=== PATIENT | female | born 1945 | race Caucasian/White ===

== ENCOUNTER 2021-09-25 14:31 | Outpatient (CLI) | payer MEDICARE, OTHER ==
[2021-09-25 15:41] LABS: Hemoglobin 10.9 g/dL (12.0-15.5); Mean Corpuscular Hemoglobin 23.7 pg (27.0-33.0); Mean Corpuscular Volume 76.7 fl (81.6-98.3); Mean Platelet Volume 9.4 fl (7.4-10.4); Platelet Count 471 10x3/uL (150-450); RBC Distribution Width 17.9 % (11.5-14.5); Red Blood Cell (RBC) Count 4.59 10x6/uL (3.90-5.03); White Blood Cell (WBC) Count 9.4 10x3/uL (3.5-10.5)
[2021-09-25 15:53] LABS: Anion Gap 19 mmol/L (10-20); BUN (Urea Nitrogen) 25 mg/dL (9.8-20.1); Calc. Creatinine Clearance 0 mL/min (70-130); Calcium 9.6 mg/dL (7.8-10.44); Carbon Dioxide 22 mmol/L (23-31); Chloride 102 mmol/L (98-107); Glucose 98 mg/dL (83-110); Potassium 4.8 mmol/L (3.5-5.1); Sodium 138 mmol/L (136-145)
[2021-09-25 15:56] LABS: INR-International Normal Ratio 0.9; PTT 24.3 sec (22.0-33.0); Prothrombin Time 10.2 sec (9.5-12.1)
[2021-09-25 23:34] LABS: SARS-CoV-2 PCR by NAA Not Detected (NotDetected)
== END 2021-09-25 14:32 | disposition home or self-care (01) ==
LOC: LABBT 14:31
PROVIDERS: ATTEND Neurological Surgery
DX: Z01.818 Encounter for other preprocedural examination (principal); M48.061 Spinal stenosis, lumbar region without neurogenic claudication; M48.07 Spinal stenosis, lumbosacral region; Z20.822 Contact with and (suspected) exposure to COVID-19
CPT/HCPCS: 80048; 85027; 85610; 85730; 93005; U0003; U0005; 93010

== ENCOUNTER 2021-09-28 10:36 | Day surgery (SDC) | payer MEDICARE, OTHER ==
[2021-09-26 15:05] VITALS: BMI 26.9
[2021-09-28] MEDS ORDERED: EPINEPHrine 1 MG/ML AMP ONE (11:45)
[2021-09-28] MEDS ORDERED: Bupivacaine PF 0.5% 30 ML VIAL ONE (11:45)
[2021-09-28] MEDS ORDERED: Thrombin 5000 UNITS/5 ML VIAL ONE (11:46)
[2021-09-28] MEDS ORDERED: Neomycin-Polymyxin 1 ML AMP ONE (11:46)
[2021-09-28] MEDS ORDERED: ceFAZolin (BATCH) 2 GM/100 ML BAG ONE (12:25)
[2021-09-28] MEDS ORDERED: Midazolam HCl 2 mg/2 ml Vial ONE (12:33)
[2021-09-28] MEDS ORDERED: ePHEDrine 50 MG/ML VIAL ONE (12:35)
[2021-09-28] MEDS ORDERED: Rocuronium Bromide 10 MG/ML (10ML VIAL) ONE (12:35)
[2021-09-28] MEDS ORDERED: Ondansetron PF 4 MG/2 ML Vial ONE (12:35)
[2021-09-28] MEDS ORDERED: Lidocaine 1% PF 5 ML VIAL ONE (12:35)
[2021-09-28] MEDS ORDERED: Glycopyrrolate 0.2 MG/ML 5 ML SYRINGE ONE (12:35)
[2021-09-28] MEDS ORDERED: PROPOFOL 200 MG/20 ML VIAL ONE (12:35)
[2021-09-28] MEDS ORDERED: Dexamethasone 20 MG/5 ML VIAL ONE (12:35)
[2021-09-28] MEDS ORDERED: fentaNYL Citrate/PF 100 MCG/2 ML SYRINGE ONE ×2 (12:39→15:04)
[2021-09-28] MEDS ORDERED: Promethazine HCl 25 MG/ML VIAL IM PRN ×2 (15:50→15:51)
[2021-09-28] MEDS ORDERED: Ondansetron HCl/PF 4 MG/2 ML Vial IVP PRN ×2 (15:50→15:51)
[2021-09-28] MEDS ORDERED: Promethazine HCl 25 MG/ML VIAL IVPB PRN ×2 (15:50→15:51)
[2021-09-28] MEDS ORDERED: Fentanyl 100 MCG/2 ML VIAL ONE (16:08)
[2021-09-28] MEDS ORDERED: Promethazine HCl 25 MG/ML VIAL ONE (17:32)
[2021-09-28] MEDS ORDERED: traMADol HCl 50 MG TAB ONE (18:24)
== END 2021-09-28 18:52 | disposition home or self-care (01) ==
LOC: SDC 10:36
PROVIDERS: ATTEND Neurological Surgery
PROC: 0QB00ZZ Excision of Lumbar Vertebra, Open Approach (ICD-10-PCS; principal; 2021-09-28)
PROC: 01NB0ZZ Release Lumbar Nerve, Open Approach (ICD-10-PCS; 2021-09-28)
DX: M48.062 Spinal stenosis, lumbar region with neurogenic claudication (principal); M71.38 Other bursal cyst, other site; G20 Parkinson's disease; M54.16 Radiculopathy, lumbar region; M48.02 Spinal stenosis, cervical region; I10 Essential (primary) hypertension; E78.5 Hyperlipidemia, unspecified; I69.331 Monoplegia of upper limb following cerebral infarction affecting right dominant side; E03.9 Hypothyroidism, unspecified; G89.4 Chronic pain syndrome; E78.00 Pure hypercholesterolemia, unspecified; Z87.891 Personal history of nicotine dependence; Z92.3 Personal history of irradiation; Z79.82 Long term (current) use of aspirin; Z79.890 Hormone replacement therapy; Z79.899 Other long term (current) drug therapy; Z88.1 Allergy status to other antibiotic agents; Z88.2 Allergy status to sulfonamides; Z88.5 Allergy status to narcotic agent; Z88.8 Allergy status to other drugs, medicaments and biological substances; Z90.5 Acquired absence of kidney
CPT/HCPCS: 76000; J0171; J0690; J1100; J2250; J2405; J2550; J2704; J3010; J3370; J3490; S0020

== ENCOUNTER 2022-09-17 13:13 | Outpatient (CLI) | payer MEDICARE, OTHER ==
[2022-09-17 14:40] LABS: PTT 26.4 sec (22.0-33.0); Prothrombin Time 10.8 sec (9.5-12.1)
== END 2022-09-17 13:14 | disposition home or self-care (01) ==
LOC: LABBT 13:13
PROVIDERS: ATTEND Neurological Surgery
DX: Z01.812 Encounter for preprocedural laboratory examination (principal); M48.062 Spinal stenosis, lumbar region with neurogenic claudication
CPT/HCPCS: 85610; 85730

== ENCOUNTER 2022-09-19 05:46 | Inpatient (IN) | payer MEDICARE, OTHER ==
[2022-09-18 13:48] VITALS: BMI 23.8
[2022-09-19] MEDS ORDERED: Neomycin-Polymyxin 1 ML AMP ONE (06:10)
[2022-09-19] MEDS ORDERED: Vancomycin 1 GM VIAL ONE (06:10)
[2022-09-19] MEDS ORDERED: Bupivacaine HCl 0.5%/Epinephrine 1:200,000/PF 30 ml Vial ONE (06:10)
[2022-09-19] MEDS ORDERED: Thrombin 5000 UNITS/5 ML VIAL ONE (06:10)
[2022-09-19] MEDS ORDERED: fentaNYL PF 100 MCG/2 ML SYRINGE ONE (06:26)
[2022-09-19] MEDS ORDERED: Sodium Chloride 0.9% 100 ML ONE (06:49)
[2022-09-19] MEDS ORDERED: NEOSTIGMINE 3 MG/3 ML SYR 3 MG/3 ML SYRINGE ONE (06:49)
[2022-09-19] MEDS ORDERED: Ondansetron PF 4 MG/2 ML Vial ONE (06:49)
[2022-09-19] MEDS ORDERED: CEFAZOLIN 2 GM VIAL ONE (06:49)
[2022-09-19] MEDS ORDERED: Lidocaine 1% PF 5 ML VIAL ONE (06:49)
[2022-09-19] MEDS ORDERED: Vecuronium 10 MG VIAL ONE (06:49)
[2022-09-19] MEDS ORDERED: ePHEDrine Sulfate 50 MG/10 ML VIAL ONE (06:49)
[2022-09-19] MEDS ORDERED: Dexamethasone 20 MG/5 ML VIAL ONE (06:49)
[2022-09-19] MEDS ORDERED: PROPOFOL 200 MG/20 ML VIAL ONE (06:49)
[2022-09-19] MEDS ORDERED: Rocuronium Bromide 10 MG/ML (10ML VIAL) ONE (06:49)
[2022-09-19] MEDS ORDERED: Scopolamine 1.5 mg/72 hour Patch ONE (06:49)
[2022-09-19] MEDS ORDERED: GLYCOPYRROLATE/PF 0.2 MG/ML VIAL ONE (06:49)
[2022-09-19] MEDS ORDERED: Phenylephrine 10 MG/ML VIAL ONE (06:49)
[2022-09-19] MEDS ORDERED: Mag-Al 1200 mg/1200 mg/30 ML UDCUP PO PRN (06:51)
[2022-09-19] MEDS ORDERED: HYDROcodone/Acetaminophen 10/325 mg Tablet PO PRN (06:51)
[2022-09-19] MEDS ORDERED: diphenhydrAMINE 50 MG/ML VIAL IVP PRN (06:51)
[2022-09-19] MEDS ORDERED: Milk Of Magnesia 30 ML UDCUP PO PRN (06:51)
[2022-09-19] MEDS ORDERED: Ondansetron PF 4 MG/2 ML Vial IVP PRN (06:51)
[2022-09-19] MEDS ORDERED: Prochlorperazine 10 MG/2 ML VIAL IM PRN (06:51)
[2022-09-19] MEDS ORDERED: Promethazine HCl 12.5 MG SUPP PR PRN (06:51)
[2022-09-19] MEDS ORDERED: HYDROcodone/Acetaminophen 7.5/325 mg Tablet PO PRN (06:51)
[2022-09-19] MEDS ORDERED: tiZANidine HCl 4 MG TAB PO PRN (06:54)
[2022-09-19] MEDS ORDERED: Midazolam HCl 2 mg/2 ml Vial ONE (06:55)
[2022-09-19 07:06] LABS: #Basophils 0.1 thou/uL (0.0-0.2); #Eosinphils 0.2 thou/uL (0.0-0.7); #Neutrophils 5.9 thou/uL (1.40-6.50); %Basophils 0.7 % (0.0-1.0); %Eosinophils 1.9 % (0.0-10.0); %Lymphocytes 22.2 % (21.0-51.0); %Monocytes 10.6 % (0.0-10.0); %Neutrophils 64.6 % (42.0-75.0); Hemoglobin 14.7 g/dL (12.0-16.0); Mean Corpuscular HGB CONC 33.7 g/dL (32.0-36.0); Mean Corpuscular Hemoglobin 32.1 pg (27.0-31.0); Mean Corpuscular Volume 95.3 fl (78.0-98.0); Mean Platelet Volume 7.3 fL (7.4-10.4); Platelet Count 254 10x3/uL (130-400); RBC Distribution Width 13.3 % (11.5-14.5); Red Blood Cell (RBC) Count 4.58 mill/uL (4.20-5.40); White Blood Cell (WBC) Count 9.2 10x3/uL (4.8-10.8)
[2022-09-19] MEDS ORDERED: HYDROmorphone 2 MG/ML VIAL ONE (13:37)
[2022-09-19] MEDS ORDERED: fentaNYL 50 mcg/mL 1 mL Vial ONE ×2 (14:45→14:54)
[2022-09-19] MEDS: Sodium Chloride 0.9% 1,000 ML IV SCH ×2 (17:31→19:39)
[2022-09-19] MEDS: Famotidine 20 MG TAB PO SCH (17:31)
[2022-09-19] MEDS: Docusate Sodium 100 MG/10 ML UDCUP PO SCH ×2 (17:31→20:11)
[2022-09-19] MEDS: Cholecalciferol 1,000 UNITS (25 MCG) TAB PO SCH (17:31)
[2022-09-19] MEDS: CEFAZOLIN 2 GM in Sodium Chloride 0.9% 100 ML IVPB SCH ×2 (17:46→22:35)
[2022-09-19] MEDS: traMADol HCl 50 MG TAB PO PRN ×2 (17:56→23:45)
[2022-09-19] MEDS: Tetrahydrozoline 0.05% OPTH 15 ML BOT EA EYE PRN (18:37)
[2022-09-19] MEDS: Cyclobenzaprine 10 MG TAB PO PRN (20:11)
[2022-09-20] MEDS: traMADol HCl 50 MG TAB PO PRN ×3 (05:12→17:27)
[2022-09-20] MEDS: Levothyroxine Sodium 125 MCG TAB PO SCH (05:12)
[2022-09-20] MEDS ORDERED: cloNIDine 0.1 MG TAB PO SCH ×2 (09:00→17:15)
[2022-09-20] MEDS ORDERED: Non-Formulary Item 1 EACH (Amantadine Hcl [Amantadine] 100 MG Tablet) PO SCH (09:00)
[2022-09-20] MEDS: Docusate Sodium 100 MG/10 ML UDCUP PO SCH ×2 (10:34→21:04)
[2022-09-20] MEDS: Cholecalciferol 1,000 UNITS (25 MCG) TAB PO SCH (10:34)
[2022-09-20] MEDS: Amantadine HCl 100 mg Capsule FS SCH ×2 (10:34→20:55)
[2022-09-20] MEDS: Famotidine 20 MG TAB PO SCH (10:34)
[2022-09-20] MEDS: Amlodipine 5 MG TAB PO SCH ×2 (10:34→20:55)
[2022-09-20] MEDS: Tetrahydrozoline 0.05% OPTH 15 ML BOT EA EYE PRN (10:35)
[2022-09-20] MEDS: Cyclobenzaprine 10 MG TAB PO PRN (11:14)
[2022-09-20] MEDS: Sodium Chloride 0.9% 1,000 ML IV SCH ×2 (14:46→23:22)
[2022-09-20] MEDS: Acetaminophen 325 MG TAB PO PRN (21:01)
[2022-09-20] MEDS: cloNIDine 0.1 MG TAB PO SCH (23:35)
[2022-09-21] MEDS: Levothyroxine Sodium 125 MCG TAB PO SCH (05:22)
[2022-09-21] MEDS: traMADol HCl 50 MG TAB PO PRN ×2 (09:12→15:32)
[2022-09-21] MEDS: Amantadine HCl 100 mg Capsule FS SCH ×2 (09:12→20:48)
[2022-09-21] MEDS: Docusate Sodium 100 MG/10 ML UDCUP PO SCH ×2 (09:12→20:48)
[2022-09-21] MEDS: Famotidine 20 MG TAB PO SCH (09:13)
[2022-09-21] MEDS: Cholecalciferol 1,000 UNITS (25 MCG) TAB PO SCH (09:13)
[2022-09-21] MEDS: Amlodipine 5 MG TAB PO SCH ×2 (09:13→20:47)
[2022-09-21] MEDS: cloNIDine 0.1 MG TAB PO SCH ×2 (17:31→23:50)
[2022-09-21] MEDS: Cyclobenzaprine 10 MG TAB PO PRN ×2 (17:31→23:50)
[2022-09-21] MEDS ORDERED: Non-Formulary Item 1 EACH (Pantoprazole Sodium [Pantoprazole Sodium] 20 MG Tablet.Dr) PO SCH (21:00)
[2022-09-22] MEDS: Levothyroxine Sodium 125 MCG TAB PO SCH (05:39)
[2022-09-22 07:31] LABS: #Basophils 0.1 thou/uL (0.0-0.2); #Eosinphils 0.3 thou/uL (0.0-0.7); #Lymphocytes 1.9 thou/uL (1.20-3.40); #Neutrophils 5.2 thou/uL (1.40-6.50); %Basophils 0.6 % (0.0-1.0); %Lymphocytes 22.9 % (21.0-51.0); %Monocytes 11.8 % (0.0-10.0); %Neutrophils 61.7 % (42.0-75.0); Hemoglobin 9.5 g/dL (12.0-16.0); Mean Corpuscular HGB CONC 34.6 g/dL (32.0-36.0); Mean Corpuscular Hemoglobin 32.6 pg (27.0-31.0); Mean Corpuscular Volume 94.3 fl (78.0-98.0); Mean Platelet Volume 7.9 fL (7.4-10.4); Platelet Count 171 10x3/uL (130-400); RBC Distribution Width 13.2 % (11.5-14.5); White Blood Cell (WBC) Count 8.5 10x3/uL (4.8-10.8)
[2022-09-22 07:56] LABS: Anion Gap 12 mmol/L (10-20); BUN (Urea Nitrogen) 12 mg/dL (9.8-20.1); Calc. Creatinine Clearance 62 mL/min (70-130); Calcium 8.1 mg/dL (7.8-10.44); Carbon Dioxide 24 mmol/L (23-31); Chloride 96 mmol/L (98-107); Estimated GFR 76; Glucose 86 mg/dL (83-110); Potassium 3.4 mmol/L (3.5-5.1); Sodium 129 mmol/L (136-145)
[2022-09-22] MEDS: Amantadine HCl 100 mg Capsule FS SCH ×2 (09:12→21:18)
[2022-09-22] MEDS: Docusate Sodium 100 MG/10 ML UDCUP PO SCH ×2 (09:12→21:19)
[2022-09-22] MEDS: Famotidine 20 MG TAB PO SCH (09:12)
[2022-09-22] MEDS: Amlodipine 5 MG TAB PO SCH ×2 (09:13→21:17)
[2022-09-22] MEDS: Cholecalciferol 1,000 UNITS (25 MCG) TAB PO SCH (09:13)
[2022-09-22] MEDS: Cyclobenzaprine 10 MG TAB PO PRN ×2 (09:17→17:53)
[2022-09-22] MEDS: traMADol HCl 50 MG TAB PO PRN ×2 (13:11→21:16)
[2022-09-22] MEDS: cloNIDine 0.1 MG TAB PO SCH ×2 (16:37→23:58)
[2022-09-23] MEDS: Levothyroxine Sodium 125 MCG TAB PO SCH (05:29)
[2022-09-23 06:56] LABS: #Eosinphils 0.3 thou/uL (0.0-0.7); #Lymphocytes 1.6 thou/uL (1.20-3.40); #Monocytes 0.9 thou/uL (0.11-0.59); #Neutrophils 4.6 thou/uL (1.40-6.50); %Basophils 0.5 % (0.0-1.0); %Eosinophils 4.6 % (0.0-10.0); %Lymphocytes 21.6 % (21.0-51.0); %Neutrophils 61.3 % (42.0-75.0); Hemoglobin 9.7 g/dL (12.0-16.0); Mean Corpuscular HGB CONC 33.3 g/dL (32.0-36.0); Mean Corpuscular Hemoglobin 30.9 pg (27.0-31.0); Mean Platelet Volume 7.4 fL (7.4-10.4); Platelet Count 225 10x3/uL (130-400); RBC Distribution Width 13.1 % (11.5-14.5); Red Blood Cell (RBC) Count 3.13 mill/uL (4.20-5.40); White Blood Cell (WBC) Count 7.5 10x3/uL (4.8-10.8)
[2022-09-23 07:13] LABS: Anion Gap 11 mmol/L (10-20); BUN (Urea Nitrogen) 15 mg/dL (9.8-20.1); Calc. Creatinine Clearance 59 mL/min (70-130); Calcium 8.3 mg/dL (7.8-10.44); Carbon Dioxide 26 mmol/L (23-31); Chloride 97 mmol/L (98-107); Estimated GFR 72; Glucose 90 mg/dL (83-110); Potassium 3.6 mmol/L (3.5-5.1); Sodium 130 mmol/L (136-145)
[2022-09-23] MEDS ORDERED: Potassium Chloride 20 MEQ TAB PO SCH (08:00)
[2022-09-23] MEDS ORDERED: Phenol 118 ML BOT PO PRN (08:41)
[2022-09-23] MEDS: Amlodipine 5 MG TAB PO SCH ×2 (09:11→20:29)
[2022-09-23] MEDS: Famotidine 20 MG TAB PO SCH (09:11)
[2022-09-23] MEDS: Cholecalciferol 1,000 UNITS (25 MCG) TAB PO SCH (09:11)
[2022-09-23] MEDS: Amantadine HCl 100 mg Capsule FS SCH ×2 (09:11→20:29)
[2022-09-23] MEDS: Docusate Sodium 100 MG/10 ML UDCUP PO SCH ×2 (09:35→20:27)
[2022-09-23] MEDS: traMADol HCl 50 MG TAB PO PRN ×2 (12:05→20:31)
[2022-09-23] MEDS: cloNIDine 0.1 MG TAB PO SCH ×2 (17:29→22:31)
[2022-09-24] MEDS: Levothyroxine Sodium 125 MCG TAB PO SCH (05:55)
[2022-09-24] MEDS: traMADol HCl 50 MG TAB PO PRN (05:56)
[2022-09-24] MEDS: Cyclobenzaprine 10 MG TAB PO PRN (05:58)
[2022-09-24 07:43] VITALS: TEMP 97.5
[2022-09-24 08:10] LABS: Anion Gap 12 mmol/L (10-20); BUN (Urea Nitrogen) 12 mg/dL (9.8-20.1); Calc. Creatinine Clearance 58 mL/min (70-130); Calcium 8.7 mg/dL (7.8-10.44); Carbon Dioxide 26 mmol/L (23-31); Chloride 97 mmol/L (98-107); Estimated GFR 70; Glucose 90 mg/dL (83-110); Magnesium 2.1 mg/dL (1.6-2.6); Potassium 4.2 mmol/L (3.5-5.1); Sodium 131 mmol/L (136-145)
[2022-09-24] MEDS: Famotidine 20 MG TAB PO SCH (08:45)
[2022-09-24] MEDS: Amantadine HCl 100 mg Capsule FS SCH (08:45)
[2022-09-24] MEDS: Cholecalciferol 1,000 UNITS (25 MCG) TAB PO SCH (08:46)
[2022-09-24] MEDS: Acetaminophen 325 MG TAB PO PRN (08:46)
[2022-09-24] MEDS: Amlodipine 5 MG TAB PO SCH (08:47)
[2022-09-24] MEDS ORDERED: Docusate Sodium 100 MG/10 ML UDCUP PO SCH (09:00)
[2022-09-24] MEDS: cloNIDine 0.1 MG TAB PO SCH (17:34)
[2022-09-24 22:50] VITALS: BP 159/85
== END 2022-09-24 20:20 | DRG 460 ==
LOC: SDC 05:46 → SURG B 16:00 → OBSVTOIN 09-21 07:53
PROVIDERS: ADMIT Neurological Surgery; ATTEND Neurological Surgery
PROC: 0SG30AJ Fusion of Lumbosacral Joint with Interbody Fusion Device, Posterior Approach, Anterior Column, Open Approach (ICD-10-PCS; principal; 2022-09-21)
PROC: 01NB0ZZ Release Lumbar Nerve, Open Approach (ICD-10-PCS; 2022-09-21)
DX: M48.062 Spinal stenosis, lumbar region with neurogenic claudication (principal); E87.1 Hypo-osmolality and hyponatremia; D62 Acute posthemorrhagic anemia; M71.38 Other bursal cyst, other site; F41.9 Anxiety disorder, unspecified; I10 Essential (primary) hypertension; E03.9 Hypothyroidism, unspecified; G20 Parkinson's disease; Z79.899 Other long term (current) drug therapy; D64.9 Anemia, unspecified; Z87.891 Personal history of nicotine dependence; Z90.5 Acquired absence of kidney; Z86.73 Personal history of transient ischemic attack (TIA), and cerebral infarction without residual deficits; Z79.82 Long term (current) use of aspirin
CPT/HCPCS: 36415; 80048; 83735; 85025; C1713; C1768; C1776; C1889; J1100; J1170; J2250; J2370; J2405; J2704; J3010; J3370; J3490